=== PATIENT | female | born 1955 | race Caucasian/White ===

== ENCOUNTER 2019-12-18 19:53 | Inpatient (IN) | payer MEDICARE ==
[~2019-12-18] VITALS: Ht 154.9 cm; Wt 49.0 kg
[2019-12-18 22:50] VITALS: BP 138/76
[2019-12-18] MEDS ORDERED: FEBU80TA PO (23:20)
[2019-12-18] MEDS ORDERED: LEVO25TA7 GT (23:20)
[2019-12-18] MEDS ORDERED: PRAV20TA PO (23:20)
[2019-12-18] MEDS ORDERED: DIAZ10TA PO (23:20)
[2019-12-18 23:22] VITALS: BP 138/76
[2019-12-18] MEDS ORDERED: CARI350T PO (23:22)
[2019-12-18] MEDS ORDERED: HYDR-4384 PO (23:23)
[2019-12-18] MEDS ORDERED: CALC667T8 PO (23:25)
[2019-12-18] MEDS ORDERED: HYDR-4354 PO (23:25)
[2019-12-18] MEDS ORDERED: GABA100C PO (23:30)
[2019-12-18] MEDS ORDERED: ONDA4TAB5 PO ×2 (23:30)
[2019-12-18] MEDS ORDERED: AMLO5TAB9 PO (23:30)
[2019-12-18] MEDS ORDERED: CARV12.5 PO (23:30)
[2019-12-18] MEDS ORDERED: LOSA25TA27 PO (23:30)
[2019-12-18] MEDS ORDERED: CHOL200010 PO (23:30)
[2019-12-19] VITALS: BP 137/83
[2019-12-19] MEDS ORDERED: CARISOPRODOL 350 MG TABLET PO PRN
[2019-12-19] MEDS ORDERED: DIAZEPAM 10 MG TABLET PO SCH
[2019-12-19] MEDS ORDERED: ONDANSETRON HCL/PF 4 MG/2 ML VIAL IVP PRN
[2019-12-19] MEDS ORDERED: ACETAMINOPHEN 325 MG TABLET PO PRN
[2019-12-19] MEDS ORDERED: CARVEDILOL 12.5 MG TABLET PO ONE (01:30)
[2019-12-19] MEDS ORDERED: LOSARTAN POTASSIUM 25 MG TABLET PO ONE (01:30)
[2019-12-19] MEDS ORDERED: SENNOSIDES 8.6 MG TABLET PO PRN (02:00)
[2019-12-19] MEDS ORDERED: DIAZEPAM 5 MG TABLET ONE (02:36)
[2019-12-19] MEDS ORDERED: DIAZ5TAB4 PO (02:51)
[2019-12-19 04:00] VITALS: BP 140/73
--- NOTE | 2019-12-19 06:29 | NUR ---
FISH PROCESSOR CLOSING NOTES: PATIENT RESTING IN BED, A/O X4. NO S/S OF DISTRESS NOTED. NO COMPLAIN OF PAIN. CALL LIGHT WITHOIN REACH. BED IN LOWEST AND LOCKED POSITION. NO BLEEDING NOTED. DRESSING ON THE LEFT ARM FISTULA IS CLEAN, DRY AND INTACT. PATIENT WAS SEEN BY DR BARKER LAST NIGHT. PATIENT ABLE TO AMBULATE TO THE BATHROOM WITH MINIMAL ASSIST.
[2019-12-19 06:52] LABS: ALANINE AMINOTRANSFERASE < 6 U/L (12-78); ALBUMIN 2.6 g/dL (3.4-5.0); ALKALINE PHOSPHATASE 53 U/L (46-116); ASPARTATE AMINOTRANSFERASE 8 U/L (15-37); BILIRUBIN,TOTAL 0.5 mg/dL (0.2-1.0); CALCIUM, SERUM 8.1 mg/dL (8.5-10.1); CARBON DIOXIDE 27 mmol/L (21-32); CHLORIDE 98 mmol/L (98-107); CREATININE 7.3 mg/dL (0.6-1.3); GLUCOSE 84 mg/dL (74-106); MAGNESIUM 2.2 mg/dL (1.8-2.4); PHOSPHORUS 4.9 mg/dL (2.5-4.9); POTASSIUM 5.2 mmol/L (3.5-5.1); SODIUM SERUM 135 mmol/L (136-145); TOTAL PROTEIN, SERUM 6.2 g/dL (6.4-8.2); UREA NITROGEN, BLOOD 44 mg/dL (7-18)
[2019-12-19 06:59] LABS: CHOLESTEROL 102 mg/dL (<200); HDL CHOLESTEROL 33 mg/dL (40-60); IRON, SERUM 41 ug/dl (50-175); LDL 54 mg/dL (0-99); TOTAL IRON BINDING CAPACITY 107 ug/dl (250-450); TRIGLYCERIDES 130 mg/dL (30-150)
[2019-12-19 07:03] LABS: BASOPHILS % (AUTO) 0.9 % (0.0-2.0); EOSINOPHILS % (AUTO) 4.3 % (0.0-6.0); HEMATOCRIT 26 % (33-45); HEMOGLOBIN 7.2 g/dL (11.5-14.8); LYMPHOCYTES # (AUTO) 2.7 /CMM (0.8-4.8); LYMPHOCYTES % (AUTO) 49.4 % (20.0-44.0); MEAN CORPUSCULAR HGB CONC 28 g/dl (31.0-36.0); MEAN CORPUSCULAR VOLUME 61 fL (82-100); MONOCYTES # (AUTO) 0.3 /CMM (0.1-1.30); MONOCYTES % (AUTO) 6.4 % (2.0-12.0); NEUTROPHILS # (AUTO) 2.1 /CMM (1.8-8.9); PLATELET COUNT (AUTO) 76 /CMM (150-450); WHITE BLOOD COUNT (AUTO) 5.5 K/uL (4.3-11.0)
--- NOTE | 2019-12-19 07:30 | NUR ---
RN MS NOTES PT IN BED, AWAKE, ALERT AND ORIENTED, NO COMPLAINT OF PAIN OR ANY DISCOMFORT, BREATHING PATTERN NORMAL, CALL LIGHT WITHIN REACH, KEPT WARM AND COMFORTABLE IN BED.
[2019-12-19] MEDS: PANTOPRAZOLE 40 MG TABLET.DR PO SCH (07:47)
[2019-12-19] MEDS: LEVOTHYROXINE SODIUM 25 MCG TABLET GT SCH (07:47)
[2019-12-19] MEDS: CALCIUM ACETATE 667 MG TABLET PO SCH ×3 (07:50→17:14)
[2019-12-19 08:00] VITALS: BP 133/77
[2019-12-19] MEDS: AMLODIPINE BESYLATE 5 MG TABLET PO SCH ×3 (09:00→21:00)
[2019-12-19] MEDS ORDERED: LOSARTAN POTASSIUM 25 MG TABLET PO SCH (09:00)
[2019-12-19] MEDS: CHOLECALCIFEROL 1,000 UNIT TABLET (VIT D3) PO SCH (10:05)
[2019-12-19] MEDS: CARVEDILOL 12.5 MG TABLET PO SCH ×2 (10:06→22:23)
[2019-12-19] MEDS: GABAPENTIN 100 MG CAPSULE PO SCH ×2 (10:06→22:24)
[2019-12-19] MEDS: HYDROCODONE/APAP 10/325MG TABLET PO PRN (10:17)
[2019-12-19 11:13] LABS: EOSINOPHILS % (MANUAL) 7 % (0-4); LYMPHOCYTES % (MANUAL) 26 % (16-48); MONOCYTES % (MANUAL) 7 % (0-11.0); NEUTROPHILS % (MANUAL) 60 (42-76)
[2019-12-19] MEDS ORDERED: EPOETIN ALFA (10,000 UNIT) 10,000 UNIT/ML VIAL SQ SCH (13:00)
[2019-12-19] MEDS: JADENU PO SCH (14:29)
[2019-12-19] MEDS: JADENU 180 MG PO SCH (14:44)
[2019-12-19 16:00] VITALS: BP 120/68
[2019-12-19] MEDS ORDERED: SODIUM POLYSTYRENE SULFONATE 15 G/60 ML BOTTLE PO ONE (17:30)
--- NOTE | 2019-12-19 19:30 | NUR ---
MS RN NOTES RECEIVED A/O X4,SITTING ON EDGE OF BED,TAKING PO KAYEXALATE FOR K LEVEL OF 5.2.HD CATH LEFT UPPER ARM DRESSING INTACT AND DRY.NO BLEEDING NOTED.WITH SALINE LOCK RIGHT WRIST INTACT AND PATENT,AMBULATE WITH STEADY GAIT.INSTRUCTED NPO POST MIDNIGHT FOR FOR HD CATH PLACEMENT TOMORROW MORNING.CALL LIGHT IN REACH,NEEDS ANTICIPATED.
--- NOTE | 2019-12-19 19:38 | NUR ---
MS RN CLOSING SHIFT NOTES PATIENT RESTING IN BED COMFORTABLY ON RA, A/O X 4, IV TO RT FA #20 ; RT WRIST #20 SL. CONTINET, AMBULATORY, BRP. DRESSING TO LT ARM FISTULA. CONSENT SIGNED TO HAVE FISTULA REPAIR. PT NPO. BED AT LOWEST POSITION, LOCKED WITH SIDE RAILS UP X2 ALL SAFETY MEASURES IN PLACE WILL ENDORSE TO DIRECTOR OF VIDEO ANALYTICS.
[2019-12-19 20:00] VITALS: BP 127/76
--- NOTE | 2019-12-19 20:27 | NUR ---
MS RN NOTES FEELING NAUSEATED FROM KAYEXALATE,MEDICATED WITH ZOFRAN 4MG IV ORDERED.
[2019-12-19] MEDS ORDERED: ULORIC 80 MG PO SCH (21:00)
[2019-12-19] MEDS: POLYETHYLENE GLYCOL 3350 17 GM POWD.PACK PO SCH (22:00)
[2019-12-19] MEDS: DIAZEPAM 5 MG TABLET PO SCH (22:25)
[2019-12-20] VITALS (7 sets, daily range): BP systolic 112–140; BP diastolic 42–76
--- NOTE | 2019-12-20 06:41 | NUR ---
MS RN NOTES FAIRLY RESTED AT NIGHT,KAYEXALATE EFFECTIVE,HAD 7-8 WATERY BOWEL MOVEMENT,NAUSEA IMPROVED.KEPT NPO FOR HD CATH PLACEMENT BY DR TRUONG AT 0900 TODAY.MEDICATIONS ADMINISTERED.SYNTHROID HELD,IN NO ACUTE DISTRESS.CALL LIGHT IN REACH,NEEDS ATTENDED.
[2019-12-20 06:59] LABS: BASOPHILS # (AUTO) 0.1 /CMM (0.0-0.2); BASOPHILS % (AUTO) 1.1 % (0.0-2.0); EOSINOPHILS % (AUTO) 3.8 % (0.0-6.0); HEMATOCRIT 24 % (33-45); LYMPHOCYTES # (AUTO) 2.6 /CMM (0.8-4.8); LYMPHOCYTES % (AUTO) 52.7 % (20.0-44.0); MEAN CORPUSCULAR HGB CONC 29 g/dl (31.0-36.0); MEAN CORPUSCULAR VOLUME 62 fL (82-100); MONOCYTES # (AUTO) 0.3 /CMM (0.1-1.30); MONOCYTES % (AUTO) 5.7 % (2.0-12.0); NEUTROPHILS # (AUTO) 1.8 /CMM (1.8-8.9); NEUTROPHILS % (AUTO) 36.7 % (43.0-81.0); PLATELET COUNT (AUTO) 83 /CMM (150-450); RED BLOOD CELL COUNT(AUTO) 3.78 MIL/uL (4.0-5.2)
[2019-12-20] MEDS: LEVOTHYROXINE SODIUM 25 MCG TABLET GT SCH (07:00)
[2019-12-20 07:20] LABS: CALCIUM, SERUM 8.4 mg/dL (8.5-10.1); POTASSIUM 5.3 mmol/L (3.5-5.1)
[2019-12-20 07:24] LABS: HEMOGLOBIN 6.9 g/dL (11.5-14.8)
[2019-12-20] MEDS: PANTOPRAZOLE 40 MG TABLET.DR PO SCH (07:30)
[2019-12-20 07:33] LABS: CREATININE 9.6 mg/dL (0.6-1.3)
--- NOTE | 2019-12-20 07:42 | NUR ---
MS RN OPENING NOTES PATIENT RESTING COMFORTABLY IN BED, A/O X4. NPO; PROCEDURE FOR LT AV FISTULA REPAIR TODAY. PATIENT ON RA, NO SOB, NO S/S OF RESPIRATORY DISTRESS NOTED. NO COMPLAIN OF PAIN. BED IN LOWEST AND LOCKED POSITION WITH CALL LIGHT WITH IN REACH. NO BLEEDING NOTED. DRESSING ON THE LEFT ARM FISTULA IS CLEAN, DRY AND INTACT.ALL SAFETY MEASURES IN PLACE. WILL CONTINUE TO MONITOR PT THROUGH OUT SHIFT
[2019-12-20] MEDS: CALCIUM ACETATE 667 MG TABLET PO SCH ×4 (08:00→23:46)
--- NOTE | 2019-12-20 08:28 | NUR ---
was notified re; hgb 6.9 hct 24 creatine 9.6 bun 54 at this time also surgery was canceled due to low hgb waiting for returninig call back
[2019-12-20 08:31] LABS: EOSINOPHILS % (MANUAL) 1 % (0-4); LYMPHOCYTES % (MANUAL) 56 % (16-48); MONOCYTES % (MANUAL) 5 % (0-11.0); NEUTROPHILS % (MANUAL) 38 (42-76)
[2019-12-20] MEDS ORDERED: ANESTHESIA TRAY IN PYXIS 1 EA TRAY MC ONE (08:34)
[2019-12-20] MEDS ORDERED: HEPARIN SODIUM, PORCINE 1,000 UNIT/ML VIAL ONE (08:36)
[2019-12-20] MEDS ORDERED: LIDOCAINE 1% INJ 50 ML MDV IJ ONE (08:36)
--- NOTE | 2019-12-20 08:45 | NUR ---
RN MS NOTES PT PICKED UP BY O.R. STAFF VIA BED FOR SURGERY, NO COMPLAINT OF PAIN, RESPIRATIONS NORMAL, MD AND O.R. STAFF INFORMED OF HGB LEVEL OF 6.9, NO BLEEDING NOTED, MD ORDERED 1 UNIT PRBC, DR. OCAMPO DISCUSSED PLAN OF CARE WITH PT, VERBALIZED UNDERSTANDING, PT PICKED UP FOR O.R. IN STABLE CONDITION.
[2019-12-20] MEDS: CHOLECALCIFEROL 1,000 UNIT TABLET (VIT D3) PO SCH (09:00)
[2019-12-20] MEDS ORDERED: SODIUM POLYSTYRENE SULFONATE 15 G/60 ML BOTTLE PO ONE ×2 (09:00→12:00)
[2019-12-20] MEDS: JADENU 180 MG PO SCH (09:00)
[2019-12-20] MEDS: AMLODIPINE BESYLATE 5 MG TABLET PO SCH ×3 (09:00→22:03)
[2019-12-20] MEDS: GABAPENTIN 100 MG CAPSULE PO SCH ×2 (09:00→21:27)
[2019-12-20] MEDS: JADENU PO SCH (09:00)
[2019-12-20] MEDS ORDERED: IOHEXOL 240MG/ML 50 ML IV ONE (09:35)
[2019-12-20] MEDS: CARVEDILOL 12.5 MG TABLET PO SCH ×2 (11:49→21:27)
[2019-12-20] MEDS: HYDROCODONE/APAP 10/325MG TABLET PO PRN ×2 (12:33→20:50)
[2019-12-20 13:46] LABS: IRON, SERUM 41 ug/dl (50-175); TOTAL IRON BINDING CAPACITY 133 ug/dl (250-450)
[2019-12-20] MEDS: EPOETIN ALFA (10,000 UNIT) 10,000 UNIT/ML VIAL SQ SCH (15:48)
[2019-12-20] MEDS: ANCEF 1 GM/50 ML D5W IV SCH ×2 (17:45)
[2019-12-20] MEDS: HYDROCODONE/APAP 5/325MG TABLET PO PRN (17:45)
--- NOTE | 2019-12-20 18:54 | NUR ---
MS RN CLOSING NOTES PATIENT SITTING COMFORTABLY ON SIDE OF BED TALKING TO FAMILY ON THE PHONE, A/O X4. ON RA, NO ACUTE RESPIRATORY DISTRESS NOTED, NO C/O SOB. IV TO RT FA AND RT WRIST #20 PATENT AND INTACT WITH NO SIGNS OF INFILTRATION NOTED, NO REDNESS OR SWELLING NOTED. PT HAD PERMACATH HD PLACEMENT TO LT UPPER CHEST AREA DONE TODAY. PT HAD HD TODAY WITH 1500 OUTPUT AND 1 UNIT OF PRBC ADMINISTERED WITH HD. PT C/O PAIN, NORCO ADMINISTERED. ANCEF ADMINISTERED. BED AT LOWEST POSITION AND LOCKED WITH SIDE RAILS UP X2 AND CALL LIGHT WITH IN REACH. WILL ENDORSE TO ONCOMING SHIFT.
--- NOTE | 2019-12-20 19:00 | NUR ---
RN CLOSING NOTES Received patient A/O x4, awake, resting on bed, on RA. No complaints made at this time. L arm AV fistula dressing clean, dry and intact, no signs of bleeding noted. Kept on bed clean, dry and comfortable. Call light within easy reach. Will continue to monitor. Addendum: 12/21/19 at 0650 by MAGDIEL BALDERRAMA RN rn opening notes
[2019-12-20] MEDS: DIAZEPAM 5 MG TABLET PO SCH (21:27)
[2019-12-20] MEDS: POLYETHYLENE GLYCOL 3350 17 GM POWD.PACK PO SCH ×2 (21:27→22:00)
[2019-12-20] MEDS: LOSARTAN POTASSIUM 25 MG TABLET PO SCH (22:51)
[2019-12-21] MEDS: ANCEF 1 GM/50 ML D5W IV SCH ×4 (01:54→10:57)
[2019-12-21] MEDS: HYDROCODONE/APAP 5/325MG TABLET PO PRN ×3 (01:59→22:25)
[2019-12-21] MEDS: HYDROCODONE/APAP 10/325MG TABLET PO PRN (04:55)
--- NOTE | 2019-12-21 06:48 | NUR ---
RN CLOSING NOTES Pt awake, ongoing dialysis at bedside. Medicated for pain, noted effective. All due meds given as ordered. No new complaints noted. All nursing needs attended, due meds given as ordered. Kept on bed clean, dry and comfortable. Call light within easy reach. Endorsed.
[2019-12-21 06:50] LABS: BASOPHILS # (AUTO) 0.1 /CMM (0.0-0.2); BASOPHILS % (AUTO) 1.2 % (0.0-2.0); EOSINOPHILS % (AUTO) 2.2 % (0.0-6.0); HEMATOCRIT 25 % (33-45); HEMOGLOBIN 7.5 g/dL (11.5-14.8); LYMPHOCYTES # (AUTO) 2.2 /CMM (0.8-4.8); LYMPHOCYTES % (AUTO) 46.7 % (20.0-44.0); MEAN CORPUSCULAR HGB CONC 31 g/dl (31.0-36.0); MEAN CORPUSCULAR VOLUME 68 fL (82-100); MONOCYTES # (AUTO) 0.2 /CMM (0.1-1.30); MONOCYTES % (AUTO) 5.1 % (2.0-12.0); NEUTROPHILS # (AUTO) 2.2 /CMM (1.8-8.9); NEUTROPHILS % (AUTO) 44.8 % (43.0-81.0); PLATELET COUNT (AUTO) 79 /CMM (150-450); RED BLOOD CELL COUNT(AUTO) 3.61 MIL/uL (4.0-5.2); WHITE BLOOD COUNT (AUTO) 4.8 K/uL (4.3-11.0)
[2019-12-21 07:30] LABS: C-REACTIVE PROTEIN 4.1 mg/dL (0.0-0.9)
[2019-12-21 07:31] LABS: ALBUMIN 2.5 g/dL (3.4-5.0); ALKALINE PHOSPHATASE 50 U/L (46-116); ASPARTATE AMINOTRANSFERASE 6 U/L (15-37); BILIRUBIN,TOTAL 0.3 mg/dL (0.2-1.0); CARBON DIOXIDE 30 mmol/L (21-32); CHLORIDE 109 mmol/L (98-107); GLUCOSE 92 mg/dL (74-106); PHOSPHORUS 2.6 mg/dL (2.5-4.9); POTASSIUM 3.7 mmol/L (3.5-5.1); SODIUM SERUM 146 mmol/L (136-145); TOTAL PROTEIN, SERUM 6.1 g/dL (6.4-8.2); UREA NITROGEN, BLOOD 19 mg/dL (7-18)
[2019-12-21 07:45] LABS: ALANINE AMINOTRANSFERASE < 6 U/L (12-78); CREATININE 4.2 mg/dL (0.6-1.3)
--- NOTE | 2019-12-21 07:45 | NUR ---
RN NOTE THE PATIENT IS RECEIVED IN BED. THE PATIENT IS ALERT AND ORIENTED X4. DENIES PAIN. RESPIRATION REGULAR AND UNLABORED. PATIENT IS IN ROOM AIR AND DENIES SOB. PATIENT IN NO APPARENT DISTRESS. RFA G 20 AND RIGHT WRIST G 20 BOTH PATENT AND SALINE LOCKED. BED LOW AND LOCKED. SIDE RAILS UP X2. CALL LIGHT WITHIN REACH. WILL ENDORSE TO PATIENT CARE REPRESENTATIVE.
[2019-12-21 08:00] VITALS: BP 117/84
--- NOTE | 2019-12-21 09:35 | NUR ---
RN NOTE PER SERVICENOW ADMINISTRATOR DEVELOPER OCAMPO DIET CHANGED TO RENAL STANDARD. NOTED AND CARRIED OUT.
[2019-12-21] MEDS: PANTOPRAZOLE 40 MG TABLET.DR PO SCH (09:45)
[2019-12-21] MEDS: GABAPENTIN 100 MG CAPSULE PO SCH ×2 (09:45→20:42)
[2019-12-21] MEDS: LEVOTHYROXINE SODIUM 25 MCG TABLET GT SCH (09:45)
[2019-12-21] MEDS: LOSARTAN POTASSIUM 25 MG TABLET PO SCH ×2 (09:46→17:00)
[2019-12-21] MEDS: CARVEDILOL 12.5 MG TABLET PO SCH ×2 (09:46→20:42)
[2019-12-21] MEDS: CHOLECALCIFEROL 1,000 UNIT TABLET (VIT D3) PO SCH (09:46)
[2019-12-21] MEDS: JADENU PO SCH (09:47)
[2019-12-21] MEDS: JADENU 180 MG PO SCH (09:47)
--- NOTE | 2019-12-21 10:20 | NUR ---
RN NOTE PATIENT HD DIALYSIS TODAY WITH 500 ML OUTPUT.
[2019-12-21 11:24] LABS: EOSINOPHILS % (MANUAL) 5 % (0-4); LYMPHOCYTES % (MANUAL) 17 % (16-48); MONOCYTES % (MANUAL) 11 % (0-11.0); NEUTROPHILS % (MANUAL) 67 (42-76)
[2019-12-21] MEDS: CALCIUM ACETATE 667 MG TABLET PO SCH ×2 (12:10→17:13)
[2019-12-21] MEDS: EPOETIN ALFA (10,000 UNIT) 10,000 UNIT/ML VIAL SQ SCH (15:06)
[2019-12-21 16:00] VITALS: BP 116/84
[2019-12-21] MEDS: oxyCODONE/APAP (5/325 MG) 1 UDTAB TABLET PO PRN (17:13)
--- NOTE | 2019-12-21 18:26 | NUR ---
RN NOTE THE PATIENT IS ALERT AND ORIENTED X4. IN ROOM AIR AND SATURATION IS AT 96%. DENIES SOB. RESPIRATION REGULAR AND UNLABORED. DENIES PAIN. THE PATIENT IS IN NO APPARENT DISTRESS. RFA G 20 PATENT AND SALINE LOCKED. RIGHT WRIST G 20 PATENT AND SALINE LOCKED. LEFT UUPER CHESTWALL HD CATH PRESENT. LAC FISTULA PRESENT. BED LOW AND LOCKED. SIDE RAILS UP X2. CALL LIGHT WITHIN REACH. WILL ENDORSE TO SHOE SEWING MACHINE OPERATOR AND TENDER.
--- NOTE | 2019-12-21 19:30 | NUR ---
MS/RN OPENING NOTES RECEIVED PATIENT IN BED RESTING. PATIENT IS ALERT AND ORIENTED X 4. PATIENT IS STABLE ON RA. NO SIGNS OF SOB OR RESPIRATORY DISTRESS NOTED. BREATHING IS EVEN AND UNLABORED. PATIENT HAS IV ACCESS ON RIGHT FA #20, RIGHT WRIST #20SL. PATIENTS LAV FISTULA PRESENT, AND LUCW PERMA CATH INPLACE NO SIGNS OF ACTIVE BLEEDING. PATIENT STATES PAIN AT THIS TIME AREA LUCW AREA. SAFETY PRECAUTIONS IN PLACE WITH BED LOCKED, BED IN THE LOWEST POSITION, BILATERAL SIDE RAILS UP, BED ALARM ON AND CALL LIGHT WITHIN EASY REACH OF THE PATIENT. WILL CONTINUE TO MONITOR THROUGH OUT SHIFT.
[2019-12-21 20:00] VITALS: BP 130/79
[2019-12-21] MEDS: POLYETHYLENE GLYCOL 3350 17 GM POWD.PACK PO SCH (20:41)
[2019-12-21] MEDS: DIAZEPAM 5 MG TABLET PO SCH (20:42)
[2019-12-22] MEDS: oxyCODONE/APAP (5/325 MG) 1 UDTAB TABLET PO PRN ×3 (03:43→17:30)
--- NOTE | 2019-12-22 03:45 | NUR ---
MS/RN NOTES PATIENT COMPLAINING OF PAIN AT LEFT PERMA CATH SITE 12/04. GIVEN PERCOCET 5/325 TAB PO. V/S ARE STABLE. WILL CONTINUE TO MONITOR.
[2019-12-22] MEDS: PANTOPRAZOLE 40 MG TABLET.DR PO SCH (06:00)
[2019-12-22] MEDS: LEVOTHYROXINE SODIUM 25 MCG TABLET GT SCH (06:00)
--- NOTE | 2019-12-22 06:30 | NUR ---
MS/RN CLOSING NOTES RECEIVED PATIENT IN BED RESTING. PATIENT IS ALERT AND ORIENTED X 4. PATIENT IS STABLE ON RA. NO SIGNS OF SOB OR RESPIRATORY DISTRESS NOTED. BREATHING IS EVEN AND UNLABORED. PATIENT HAS IV ACCESS ON RIGHT FA #20, RIGHT WRIST #20SL. PATIENTS LAV FISTULA PRESENT, AND LUCW PERMA CATH IN PLACE NO SIGNS OF ACTIVE BLEEDING. ALL PATIENTS NEEDS HAVE BEEN MET DURING SHIFT. SAFETY PRECAUTIONS IN PLACE WITH BED LOCKED AND IN THE LOWEST POSITION, SIDE RAILS UP X 2, BED ALARM ON AND CALL LIGHT WITHIN EASY REACH OF THE PATIENT. WILL ENDORSE CARE TO DAY SHIFT.
[2019-12-22 06:49] LABS: CALCIUM, SERUM 8.4 mg/dL (8.5-10.1); CREATININE 6.1 mg/dL (0.6-1.3); POTASSIUM 4.2 mmol/L (3.5-5.1)
[2019-12-22 06:54] LABS: BASOPHILS % (AUTO) 0.8 % (0.0-2.0); EOSINOPHILS % (AUTO) 3.7 % (0.0-6.0); HEMATOCRIT 25 % (33-45); HEMOGLOBIN 7.4 g/dL (11.5-14.8); LYMPHOCYTES # (AUTO) 2.6 /CMM (0.8-4.8); LYMPHOCYTES % (AUTO) 44.3 % (20.0-44.0); MEAN CORPUSCULAR HGB CONC 30 g/dl (31.0-36.0); MEAN CORPUSCULAR VOLUME 69 fL (82-100); MONOCYTES # (AUTO) 0.4 /CMM (0.1-1.30); MONOCYTES % (AUTO) 6.7 % (2.0-12.0); NEUTROPHILS # (AUTO) 2.6 /CMM (1.8-8.9); NEUTROPHILS % (AUTO) 44.5 % (43.0-81.0); PLATELET COUNT (AUTO) 76 /CMM (150-450); WHITE BLOOD COUNT (AUTO) 5.8 K/uL (4.3-11.0)
--- NOTE | 2019-12-22 07:03 | NUR ---
MS RN OPENING NOTES RECEIVED PT AWAKE IN BED AT THIS TIME. AOX4.PT ABLE TO MAKE NEEDS KNOWN. NO SOB NOTED, NO S/S OF ANY ACUTE DISTRESS NOTED. NO C/O PAIN AT THIS TIME. RESPIRATIONS ARE EVEN AND UNLABORED WITH EQUAL RISE AND FALL IN CHEST.PT SATURATING WELL ON RA. IV ACCESS NOTED IN RFA G#20 AND RIGHT WRIST G#20, BOTH INTACT, PATENT AND FLUSHING WELL. PT NOTED WITH LEFT AV FISTULA AND LEFT UPPER CW PERMA-CATH FOR HD. ASPIRATION AND SAFETY PRECAUTION IN PLACE AND MAINTAINED AT ALL TIMES. BED IN LOWEST LOCKED POSITION, HOB ELEVATED, SIDE RAILS UP X 2, CALL LIGHT WITHIN REACH. WILL CONTINUE TO MONITOR
[2019-12-22] MEDS: CALCIUM ACETATE 667 MG TABLET PO SCH ×3 (07:37→17:30)
[2019-12-22 08:00] VITALS: BP 136/75
[2019-12-22 08:17] LABS: BASOPHILS % (MANUAL) 0 % (0.0-2.0); EOSINOPHILS % (MANUAL) 3 % (0-4); LYMPHOCYTES % (MANUAL) 34 % (16-48); MONOCYTES % (MANUAL) 3 % (0-11.0); NEUTROPHILS % (MANUAL) 60 (42-76)
[2019-12-22 09:08] LABS: IMMUNOGLOBULIN A, SERUM 329 mg/dL (87-352); IMMUNOGLOBULIN G, SERUM 1291 mg/dL (586-1602); IMMUNOGLOBULIN M, SERUM 59 mg/dL (26-217)
[2019-12-22] MEDS: CARVEDILOL 12.5 MG TABLET PO SCH (09:08)
[2019-12-22] MEDS: LOSARTAN POTASSIUM 25 MG TABLET PO SCH ×2 (09:09→16:56)
[2019-12-22] MEDS: GABAPENTIN 100 MG CAPSULE PO SCH (09:09)
[2019-12-22] MEDS: JADENU PO SCH (09:09)
[2019-12-22] MEDS: JADENU 180 MG PO SCH (09:09)
[2019-12-22] MEDS: CHOLECALCIFEROL 1,000 UNIT TABLET (VIT D3) PO SCH (09:09)
--- NOTE | 2019-12-22 09:15 | NUR ---
PT C/O ACHING LEFT UPPER CHEST WALL PERMA CATH SITE PAIN OF 9/10 AT THIS TIME, VS WNL. PER PT REQUEST, PERCOSET 5/325MG PO Q4HR PRN ADMINISTERED PER ORDER AT THIS TIME. WILL CONTINUE TO MONITOR
[2019-12-22] MEDS ORDERED: INFLUENZA VACCINE 2020-21 0.5 ML DISP.SYRIN IM ONE (11:00)
--- NOTE | 2019-12-22 11:34 | NUR ---
ADMINISTERED FLU VACCINE IN RIGHT ARM AT THIS TIME. WILL CONTINUE TO MONITOR
[2019-12-22 13:24] LABS: *SPE A/G RATIO 1.1 (0.7-1.7); *SPE ALPHA-1-GLOBULIN 0.3 g/dL (0.0-0.4); *SPE ALPHA-2-GLOBULIN 0.5 g/dL (0.4-1.0); *SPE BETA GLOBULIN 0.7 g/dL (0.7-1.3); *SPE GLOBULIN, TOTAL 2.8 g/dL (2.2-3.9); *SPE M-SPIKE Not Observed g/dL (Not Observed); *SPEGAMMA GLOBULIN 1.4 g/dL (0.4-1.8)
[2019-12-22] MEDS ORDERED: OXYC1TAB8 PO (13:35)
[2019-12-22] MEDS: EPOETIN ALFA (10,000 UNIT) 10,000 UNIT/ML VIAL SQ SCH (15:18)
[2019-12-22 16:00] VITALS: BP 112/70
[2019-12-22 16:56] VITALS: BP 112/70
--- NOTE | 2019-12-22 19:00 | NUR ---
MS HOBBER NOTES PT DISCHARGE TO HOME AT THIS TIME. PT IN MEDICALLY STABLE CONDITION. ALL CARE NEEDS, TREAT AND MEDICATIONS ADMINISTERED ANTICIPATED PER ORDER. PT KEPT CLEAN AND DRY. ALL DISCHARGE INSTRUCTIONS PROVIDED FOR AND PT VERBALIZED UNDERSTANDING. MEDICATIONS PICKED UP FROM PHARMACY AND RETURNED TO PT. BELONGINGS ACCOUNTED FOR, SIGNED BY PT AND FILED IN CHART. IV ACCESSES REMOVED, PRESSURE APPLIED, SECURE WITH GAUZE AND TAPE. NO SIGN OF BLEEDING OR INFILTRATION NOTED. PT TRANSPORTED BY WHEEL CHAIR TO [facility] BY KATHERINE MEDEIROS. PT PICKED UP IN PRIVATE CAR BY HESHAM MCCALLUM.
[2019-12-23 12:35] LABS: *HGBFRC HEMOGLOBIN A2 1.6 % (1.8-3.2)
[2019-12-23 18:19] LABS: *ANA ANTI-CENTROMERE B AB <0.2 AI (0.0-0.9); *ANA ANTI-DNA(DS) AB, QN <1 IU/mL (0-9); *ANA ANTI-JO-1 <0.2 AI (0.0-0.9); *ANA ANTICHROMATIN ANTIBODY <0.2 AI (0.0-0.9); *ANA RNP ANTIBODIES <0.2 AI (0.0-0.9); *ANA SJOGREN'S ANTI-SS-A <0.2 AI (0.0-0.9); *ANA SJOGREN'S ANTI-SS-B <0.2 AI (0.0-0.9); *ANAANTI-SCLERODERMA-70 AB <0.2 AI (0.0-0.9); *ANASMITH AB <0.2 AI (0.0-0.9)
== END 2019-12-22 18:55 | disposition home or self-care (01) | DRG 314 ==
LOC: TELE 21:08 → MED 12-19 08:59
PROVIDERS: ADMIT Internal Medicine; ATTEND Student in an Organized Health Care Education/Training Program
PROC: 5A1D70Z Performance of Urinary Filtration, Intermittent, Less than 6 Hours Per Day (ICD-10-PCS; 2019-12-19)
PROC: 0JH63XZ Insertion of Tunneled Vascular Access Device into Chest Subcutaneous Tissue and Fascia, Percutaneous Approach (ICD-10-PCS; principal; 2019-12-20)
PROC: 02HV33Z Insertion of Infusion Device into Superior Vena Cava, Percutaneous Approach (ICD-10-PCS; 2019-12-20)
PROC: B548ZZA Ultrasonography of Superior Vena Cava, Guidance (ICD-10-PCS; 2019-12-20)
PROC: B54PZZZ Ultrasonography of Bilateral Upper Extremity Veins (ICD-10-PCS; 2019-12-20)
PROC: 30233N1 Transfusion of Nonautologous Red Blood Cells into Peripheral Vein, Percutaneous Approach (ICD-10-PCS; 2019-12-20)
DX: T82.838A Hemorrhage due to vascular prosthetic devices, implants and grafts, initial encounter (principal); N18.6 End stage renal disease; N25.81 Secondary hyperparathyroidism of renal origin; I12.0 Hypertensive chronic kidney disease with stage 5 chronic kidney disease or end stage renal disease; D61.818 Other pancytopenia; E87.1 Hypo-osmolality and hyponatremia; D68.9 Coagulation defect, unspecified; Z94.0 Kidney transplant status; Y84.9 Medical procedure, unspecified as the cause of abnormal reaction of the patient, or of later complication, without mention of misadventure at the time of the procedure; Y92.9 Unspecified place or not applicable; E11.22 Type 2 diabetes mellitus with diabetic chronic kidney disease; Z99.2 Dependence on renal dialysis; E87.5 Hyperkalemia; D63.1 Anemia in chronic kidney disease; D56.9 Thalassemia, unspecified; E03.9 Hypothyroidism, unspecified; K21.9 Gastro-esophageal reflux disease without esophagitis; F41.9 Anxiety disorder, unspecified; G89.4 Chronic pain syndrome; E78.5 Hyperlipidemia, unspecified; G62.9 Polyneuropathy, unspecified; K59.00 Constipation, unspecified; Z79.4 Long term (current) use of insulin; M19.90 Unspecified osteoarthritis, unspecified site; M10.9 Gout, unspecified; M89.9 Disorder of bone, unspecified; Z79.891 Long term (current) use of opiate analgesic; Y84.8 Other medical procedures as the cause of abnormal reaction of the patient, or of later complication, without mention of misadventure at the time of the procedure; Y92.89 Other specified places as the place of occurrence of the external cause; D72.820 Lymphocytosis (symptomatic); T82.868A Thrombosis due to vascular prosthetic devices, implants and grafts, initial encounter; E83.9 Disorder of mineral metabolism, unspecified; D50.9 Iron deficiency anemia, unspecified
CPT/HCPCS: 36415; 71045-TC; 76700-TC; 80048-TC; 80053-TC; 80061-TC; 82728-TC; 82784; 83021; 83540-TC; 83735-TC; 84100-TC; 84155; 84165; 84443-TC; 85025-TC; 85027-TC; 85385-TC; 85610-TC; 85660; 85730-TC; 86140-TC; 86225; 86235; 86334; 86431-TC; 86706; 86803; 86850-TC; 87081-TC; 87340; 87806; 90935-TC; C1750; C1757; C1769; G0378; J0690; J0885; J1644; J2405; J3490; J7050; J7060; P9016-BL; Q2036; Q9966

== ENCOUNTER 2021-11-02 14:19 | Inpatient (IN) | payer MEDICARE ==
[~2021-11-02] VITALS: Ht 152.4 cm; Wt 41.7 kg
[~2021-11-02 14:19] MED LIST: AMLO-212 PO; CALC667T8 PO; CARI350T PO; CARV12.5 PO; CHOL200010 PO; DIAZ5TAB4 PO; FEBU80TA PO; GABA100C PO; HYDR-4354 PO; HYDR-4384 PO; LEVO25TA7 PO; LOSA25TA27 PO; ONDA4TAB5 PO; OXYC1TAB8 PO; PRAV20TA PO
--- NOTE | 2021-11-02 14:30 | NUR ---
To ER bed 5, HARLEY RA90 from Home "missed dialysis today -Been feeling weak/sob", aaox3, breathing even and non labored, connected to monitor, awaiting md orders
--- NOTE | 2021-11-02 14:40 | NUR ---
SALINE LOCK ESTABLISHED, BLOOD DRAWN AND SENT TO LAB
--- NOTE | 2021-11-02 14:55 | NUR ---
COVID SWAB DONE AND SENT TO LAB
[2021-11-02 14:56] LABS: BASOPHILS # (AUTO) 0.2 K/uL (0.0-0.2); BASOPHILS % (AUTO) 4.9 % (0.0-2.0); EOSINOPHILS % (AUTO) 3.3 % (0.0-6.0); HEMATOCRIT 35 % (33-45); HEMOGLOBIN 9.4 g/dL (11.5-14.8); LYMPHOCYTES # (AUTO) 1.3 K/uL (0.8-4.8); LYMPHOCYTES % (AUTO) 27.1 % (20.0-44.0); MEAN CORPUSCULAR HGB CONC 27 g/dl (31.0-36.0); MEAN CORPUSCULAR VOLUME 70 fL (82-100); MONOCYTES # (AUTO) 0.3 K/uL (0.1-1.30); MONOCYTES % (AUTO) 6.7 % (2.0-12.0); NEUTROPHILS # (AUTO) 2.9 K/uL (1.8-8.9); RED BLOOD CELL COUNT(AUTO) 5.02 MIL/uL (4.0-5.2)
[2021-11-02 15:30] LABS: CALCIUM, SERUM 7.8 mg/dL (8.5-10.1); CARBON DIOXIDE 27 mmol/L (21-32); CHLORIDE 96 mmol/L (98-107); CREATININE 6.5 mg/dL (0.6-1.3); GLUCOSE 98 mg/dL (74-106); POTASSIUM 5.5 mmol/L (3.5-5.1); SODIUM SERUM 133 mmol/L (136-145); UREA NITROGEN, BLOOD 50 mg/dL (7-18)
[2021-11-02 15:46] LABS: ALANINE AMINOTRANSFERASE 6 U/L (12-78); ALBUMIN 3.4 g/dL (3.4-5.0); ALKALINE PHOSPHATASE 139 U/L (46-116); ASPARTATE AMINOTRANSFERASE 18 U/L (15-37); BILIRUBIN,DIRECT 0.2 mg/dL (0.0-0.2); BILIRUBIN,TOTAL 0.6 mg/dL (0.2-1.0); TOTAL PROTEIN, SERUM 7.5 g/dL (6.4-8.2)
[2021-11-02 16:01] LABS: PLATELET COUNT (AUTO) 46 K/uL (150-450)
[2021-11-02 16:11] LABS: BAND % (MANUAL) 2 % (0.0-5.0); EOSINOPHILS % (MANUAL) 2 % (0-4); LYMPHOCYTES % (MANUAL) 15 % (16-48); MONOCYTES % (MANUAL) 6 % (0-11.0); NEUTROPHILS % (MANUAL) 75 (42-76)
--- NOTE | 2021-11-02 17:33 | NUR ---
JOSH [phone] [facility].
--- NOTE | 2021-11-02 17:45 | NUR ---
BED 328-1
--- NOTE | 2021-11-02 19:30 | NUR ---
RECEIVED REPORT FROM JUS ORLANDO . PT IS A HEMODIALYSIS PATIENT. WITH LEFT AV FISTULA. PATIENT IS AAOX4. WEAK AND WITH SOB. PATIENT IS ON O2 CANNULA AT 5LPM SATS 99%. PATIENT HAS PERIPHERAL LINE ON RIGHT FA G20. PATIENT WILL BE ADMITTED TO RN 328 AFTER REPORT IS GIVEN. ATTACHED TO MONITOR. VITALS CHECKED AND MONITOR. POSITIONED COMFORTABLY IN BED.
--- NOTE | 2021-11-02 20:19 | NUR ---
JAYRO INSULATION BOARD CALENDER OPERATOR CALLED TO GIVE AUTHORIZATION TO STAY. AUTH# [id number]
--- NOTE | 2021-11-02 21:00 | NUR ---
REPORT GIVEN TO RN JULY. PATIENT WILL BE MOVING TO RM [id number]
--- NOTE | 2021-11-02 21:18 | NUR ---
TRANSFERRED PATIENT TO 328-1.
[2021-11-02] MEDS ORDERED: ONDANSETRON HCL/PF 4 MG/2 ML VIAL IVP PRN (21:30)
[2021-11-02] MEDS ORDERED: ACETAMINOPHEN 325 MG TABLET PO PRN (21:30)
--- NOTE | 2021-11-02 21:30 | NUR ---
FINAL CIGAR AND BOX EXAMINERTOOL AND MACHINE MAINTAINER NOTES RECEIVED PT FROM ED VIA GURNEY AT 2107 UNDER THE CARE OF DR. MCGRAW WITH DX OF HYPOXIC RESPIRATORY FAILURE. PT IS A/O X4 W/ C/C WEAKNESS AND SOB. SHE MISSED HER HD TODAY. ORIENTED PT TO ROOM AND UNIT. INITIAL V/S TAKEN. UPON ADMISSION, PT HAS O2 AT 5 LPM VIA NASAL CANULA, LOWERED TO 3 LPM D/T HX OF COPD. NOTED AND NOTIFIED RT. C/O GENERALIZED CHRONIC PAIN 10/04. HAS RIGHT FOREARM IV ACCESS #20G AND SALINE LOCKED. NO S/S OF INFILTRATION NOTED. HAS LEFT UPPER ARM AV FISTULA, THRILLS AND BRUITS PRESENT. PT IS ANURIC. SKIN INTACT. ALL BELONGINGS ACCOUNTED FOR. SAFETY MEASURES PLACED: BED LOW AND LOCKED, ALARM ON, SIDE RAILS UP X2, CALL LIGHT WITHIN REACH.
[2021-11-02] MEDS: HYDROCODONE/APAP 10/325MG TABLET PO PRN (21:53)
--- NOTE | 2021-11-02 22:00 | NUR ---
DOG TRAINER NOTES PT VERBALIZED THAT HER PMD ADVISED TO STOP TAKING [place] D/T POTASSIUM CONTENT. NOTED AND WILL RELAY TO AM SHIFT RN.
[2021-11-02] MEDS: CARVEDILOL 12.5 MG TABLET PO SCH (22:29)
[2021-11-02] MEDS: HEPARIN SODIUM, PORCINE 5000 UNITS/1 ML VIAL SQ SCH (22:29)
[2021-11-02] MEDS: CALCIUM ACETATE 667 MG CAP/TAB PO SCH (22:29)
[2021-11-02] MEDS: GABAPENTIN 100 MG CAPSULE PO SCH (22:29)
[2021-11-02] MEDS: DIAZEPAM 5 MG TABLET PO SCH (22:30)
[2021-11-02] MEDS: AMLODIPINE BESYLATE 5 MG TABLET PO SCH (22:30)
[2021-11-02] MEDS: ALBUTEROL FS 2.5 MG/3 ML VIAL.NEB NEB PRN (22:41)
[2021-11-02] MEDS: IPRATROPIUM NEB FS 0.5 MG/2.5 ML AMPUL.NEB NEB PRN (22:41)
[2021-11-03] VITALS: BP 101/49
--- NOTE | 2021-11-03 01:00 | NUR ---
RETAIL AGENT NOTES CALLED [facility] TO CONFIRM THAT PRAVASTATIN DOSE IS 40MG.
[2021-11-03] MEDS: ALBUTEROL FS 2.5 MG/3 ML VIAL.NEB NEB PRN (03:35)
[2021-11-03] MEDS: IPRATROPIUM NEB FS 0.5 MG/2.5 ML AMPUL.NEB NEB PRN (03:35)
[2021-11-03 04:32] VITALS: BP 101/55
--- NOTE | 2021-11-03 06:50 | NUR ---
TIRE TESTER CLOSING NOTES PT LYING IN BED SLEEPING INTERMITTENTLY, EASY TO AROUSE. A/O X4. HAS O2 AT 2 LPM VIA NASAL CANULA. NO C/O OR PAIN AT THIS TIME. SATURATING AT 96-99%. ON TELE MONITOR READING SINUS RHYTHM AT 84 BPM. HAS RIGHT FOREARM IV ACCESS #20G AND SALINE LOCKED. INTACT, PATENT AND FLUSHING. HAS LEFT UPPER ARM AV FISTULA, DRESSING C/D/I. ALL DUE MEDS GIVEN AND NEEDS ATTENDED. SAFETY MEASURES MAINTAINED: BED LOW AND LOCKED, ALARM ON, SIDE RAILS UP X2, CALL LIGHT WITHIN REACH. WILL ENDORSE TO AM SHIFT FOR ADDIS.
[2021-11-03 06:52] LABS: BASOPHILS % (AUTO) 0.2 % (0.0-2.0); EOSINOPHILS % (AUTO) 2.5 % (0.0-6.0); HEMATOCRIT 33 % (33-45); HEMOGLOBIN 8.9 g/dL (11.5-14.8); LYMPHOCYTES # (AUTO) 2.6 K/uL (0.8-4.8); LYMPHOCYTES % (AUTO) 58.2 % (20.0-44.0); MEAN CORPUSCULAR HGB CONC 27 g/dl (31.0-36.0); MEAN CORPUSCULAR VOLUME 70 fL (82-100); MONOCYTES # (AUTO) 0.2 K/uL (0.1-1.30); MONOCYTES % (AUTO) 5.2 % (2.0-12.0); NEUTROPHILS # (AUTO) 1.5 K/uL (1.8-8.9); NEUTROPHILS % (AUTO) 33.9 % (43.0-81.0); PLATELET COUNT (AUTO) 53 K/uL (150-450); WHITE BLOOD COUNT (AUTO) 4.5 K/uL (4.3-11.0)
[2021-11-03] MEDS: LEVOTHYROXINE SODIUM 25 MCG TABLET PO SCH (06:52)
[2021-11-03 07:17] LABS: CREATININE 7.1 mg/dL (0.6-1.3); MAGNESIUM 2.7 mg/dL (1.8-2.4)
--- NOTE | 2021-11-03 07:30 | NUR ---
RN OPENING NOTES RECEIVED PATIENT LYING IN BED SLEEPING. EASY TO AROUSE. A/O X4. ON O2 @2 LPM VIA N/C. NO C/O SOB OR PAIN AT THIS TIME. SPO2 AT 100%. ON TELE MONITOR READING SINUS RHYTHM, HR @63 BPM. NOTED WITH RIGHT FOREARM IV ACCESS #20G AND SALINE LOCKED. INTACT, PATENT AND FLUSHING WELL. ALSO NOTED WITH LEFT UPPER ARM AV FISTULA, DRESSING C/D/I. SAFETY MEASURES IN PLACE: BED IN LOWEST AND LOCKED POSITION, BED ALARM ON, SIDE RAILS UP X2, CALL LIGHT WITHIN REACH. WILL CONTINUE TO MONITOR PATIENT.
[2021-11-03 07:46] LABS: POTASSIUM 6.3 mmol/L (3.5-5.1)
[2021-11-03 08:00] VITALS: BP 117/62
[2021-11-03] MEDS: CHOLECALCIFEROL (VITAMIN D 3) 400 UNIT TABLET PO SCH (08:44)
[2021-11-03] MEDS: GABAPENTIN 100 MG CAPSULE PO SCH ×2 (08:44→17:08)
[2021-11-03] MEDS: CALCIUM ACETATE 667 MG CAP/TAB PO SCH ×3 (08:44→17:08)
[2021-11-03] MEDS: HYDROCODONE/APAP 10/325MG TABLET PO PRN ×2 (08:45→18:37)
[2021-11-03] MEDS: LOSARTAN POTASSIUM 25 MG TABLET PO SCH (08:48)
[2021-11-03] MEDS: AMLODIPINE BESYLATE 5 MG TABLET PO SCH ×2 (08:48→17:00)
[2021-11-03] MEDS: CARVEDILOL 12.5 MG TABLET PO SCH ×2 (08:48→17:00)
[2021-11-03] MEDS: HEPARIN SODIUM, PORCINE 5000 UNITS/1 ML VIAL SQ SCH (08:48)
--- NOTE | 2021-11-03 08:48 | NUR ---
RN NOTE HEPARIN HELD PER MD, PATIENT FOR THORACENTESIS THIS AM.
[2021-11-03 11:00] LABS: BAND % (MANUAL) 1 % (0.0-5.0); EOSINOPHILS % (MANUAL) 5 % (0-4); LYMPHOCYTES % (MANUAL) 32 % (16-48); MONOCYTES % (MANUAL) 6 % (0-11.0); NEUTROPHILS % (MANUAL) 56 (42-76)
--- NOTE | 2021-11-03 12:05 | NUR ---
RN NOTE S/P RIGHT THORACENTESIS BY DR. WANG. REMOVED 700 ML OF PLEURAL FLUID. PATIENT TOLERATED PROCEDURE WELL. STAT CHEST X-RAY ORDERED.
[2021-11-03 16:00] VITALS: BP 105/58
--- NOTE | 2021-11-03 19:00 | NUR ---
RN CLOSING NOTE PATIENT AWAKE, ALERT AND ORIENTED X4 IN BED. HAS O2 VIA NC AT 2LPM. NO SOB OR RESP. DISTRESS. SATURATING AT 96-99%. HAS ON TELE MONITOR READING SINUS RHYTHM, HR @63 BPM. NOTED WITH RIGHT FOREARM IV ACCESS 20G AND SALINE LOCKED. INTACT, PATENT AND FLUSHING WELL. ALSO NOTED WITH LEFT UPPER ARM AV FISTULA, DRESSING C/D/I. HAD THORACENTESIS THIS AM, 700ML REMOVED. CURRENTLY PATIENT HAS ONGOING HEMODIALYSIS. SAFETY MEASURES IN PLACE: BED IN LOWEST AND LOCKED POSITION, BED ALARM ON, SIDE RAILS UP X2, CALL LIGHT WITHIN REACH. NEEDS MET AT THIS TIME, WILL ENDORSE TO ONCOMING NURSE.
--- NOTE | 2021-11-03 19:45 | NUR ---
SUPERINTENDENT OVERHEAD DISTRIBUTION NOTES RECEIVED ON BED A/O X4,HEMODIALYSIS TREATMENT IN PROGRESS,HD NURSE AT BEDSIDE. A/O X4,VERBALLY RESPONSIVE.
[2021-11-03 20:00] VITALS: BP 112/56
--- NOTE | 2021-11-03 20:00 | NUR ---
IMPORT EXPORT MANAGER NOTES HD TREATMENT COMPLETED,TOLERATED 3 HOURS TAKEN OUT 1 LITER,BP 123/66,PULSE-71.
--- NOTE | 2021-11-03 20:00 | NUR ---
SENIOR PHP SOFTWARE DEVELOPER NOTES NOTED DRESSING INTACT AND DRY ON LEFT UPPER ARM FISTULA HD ACCESS.NO BLEEDING NOTED.WITH RFA SALINE LOCK FOR MEDS.WILL MONITOR FOR SOB.
[2021-11-03] MEDS: CARISOPRODOL 350 MG TABLET PO PRN ×2 (21:36→21:40)
--- NOTE | 2021-11-03 21:36 | NUR ---
OTC CLERK NOTES STILL IN COMPLAINTS OF MID LOWER BACK PAIN 7/10 ON PAIN SCALE,JUST MEDICATED WITH NORCO 10/325MG,1 TAB PO BY DAY NURSE,FIRST SHE WANTS SOMA BUT SHE CHANGED HER MIND TO TAKE IT BECAUSE SHE JUST HAD NORCO 10/325 @ 1835
[2021-11-03] MEDS: ATORVASTATIN 10 MG TABLET PO SCH (21:56)
[2021-11-03] MEDS: DIAZEPAM 5 MG TABLET PO SCH (21:56)
[2021-11-04] VITALS: BP 108/59
[2021-11-04] MEDS: CARISOPRODOL 350 MG TABLET PO PRN (02:21)
--- NOTE | 2021-11-04 02:21 | NUR ---
BUSINESS ANALYSIS SPECIALIST NOTES AWAKE THIS TIME,C/O GENERALIZED PAIN,MEDICATED WITH SOMA 350MG PO WITH FOOD THIS TIME PER PATIENT REQUEST
[2021-11-04 04:00] VITALS: BP 111/63
[2021-11-04] MEDS: LEVOTHYROXINE SODIUM 25 MCG TABLET PO SCH (06:28)
--- NOTE | 2021-11-04 07:00 | NUR ---
TECHNICIAN HELPER INSTRUMENT NOTES NO EPISODE OF SOB NOTED,FAIRLY RESTED,SLEEP WITH INTERVALS,CALL LIGHT IN REACH,NEEDS ATTENDED.
[2021-11-04 07:06] LABS: CALCIUM, SERUM 8.6 mg/dL (8.5-10.1); MAGNESIUM 2.3 mg/dL (1.8-2.4); PHOSPHORUS 4.9 mg/dL (2.5-4.9); POTASSIUM 4.1 mmol/L (3.5-5.1)
--- NOTE | 2021-11-04 07:15 | NUR ---
RN OPENING NOTE RECEIVED PT IN BED ASLEEP. NO SIGNS OF RESPIRATORY DISTRESS OR SOB NOTED. NON-LABORED BREATHING. TELE READING SR AT 72. LEFT UPPER ARM FISTULA. RESTING IN BED COMFORTABLY. SAFELY CHECKS IN PLACE: BED LOCKED, BED IN LOWEST POSITION, CALL LIGHT WITHIN REACH. WILL CONTINUE TO MONITOR.
[2021-11-04 08:00] VITALS: BP 106/57
[2021-11-04] MEDS: CALCIUM ACETATE 667 MG CAP/TAB PO SCH ×3 (08:00→17:20)
[2021-11-04] MEDS: LOSARTAN POTASSIUM 25 MG TABLET PO SCH (09:00)
[2021-11-04] MEDS: GABAPENTIN 100 MG CAPSULE PO SCH ×2 (09:00→17:20)
[2021-11-04] MEDS: AMLODIPINE BESYLATE 5 MG TABLET PO SCH ×2 (09:00→17:00)
[2021-11-04] MEDS: CHOLECALCIFEROL (VITAMIN D 3) 400 UNIT TABLET PO SCH (09:00)
[2021-11-04] MEDS: CARVEDILOL 12.5 MG TABLET PO SCH ×2 (09:00→17:00)
--- NOTE | 2021-11-04 09:23 | NUR ---
RN NOTE DIALYSIS IS WITH PT AT THIS TIME, WILL GIVE SCHEDULED MEDS ONCE FINISHED.
[2021-11-04] MEDS ORDERED: LIDOCAINE HCL/PF 1% 30 ML SDV IJ ONE (10:00)
[2021-11-04 11:24] LABS: BASOPHILS # (AUTO) 0.1 K/uL (0.0-0.2); BASOPHILS % (AUTO) 2.7 % (0.0-2.0); EOSINOPHILS % (AUTO) 6.8 % (0.0-6.0); HEMATOCRIT 30 % (33-45); HEMOGLOBIN 8.3 g/dL (11.5-14.8); LYMPHOCYTES # (AUTO) 0.6 K/uL (0.8-4.8); LYMPHOCYTES % (AUTO) 16.8 % (20.0-44.0); MEAN CORPUSCULAR HGB CONC 27 g/dl (31.0-36.0); MEAN CORPUSCULAR VOLUME 68 fL (82-100); MONOCYTES # (AUTO) 0.3 K/uL (0.1-1.30); NEUTROPHILS # (AUTO) 2.3 K/uL (1.8-8.9); NEUTROPHILS % (AUTO) 65.7 % (43.0-81.0); RED BLOOD CELL COUNT(AUTO) 4.45 MIL/uL (4.0-5.2); WHITE BLOOD COUNT (AUTO) 3.5 K/uL (4.3-11.0)
[2021-11-04 11:30] LABS: PLATELET COUNT (AUTO) 38 K/uL (150-450)
[2021-11-04 12:00] VITALS: BP 120/66
[2021-11-04] MEDS: HYDROCODONE/APAP 10/325MG TABLET PO PRN ×2 (13:29→21:16)
[2021-11-04 14:40] LABS: BAND % (MANUAL) 1 % (0.0-5.0); EOSINOPHILS % (MANUAL) 6 % (0-4); LYMPHOCYTES % (MANUAL) 19 % (16-48); MONOCYTES % (MANUAL) 6 % (0-11.0); NEUTROPHILS % (MANUAL) 68 (42-76)
[2021-11-04 16:00] VITALS: BP 113/59
--- NOTE | 2021-11-04 17:22 | NUR ---
RN NOTE PT SCHEDULED FOR CT OF CHEST TODAY, CALLED CT DEPARTMENT TWICE AND NEVER CAME DOWN. WILL ENDORSE TO BRICK PAVING CHECKER.
--- NOTE | 2021-11-04 18:59 | NUR ---
RN CLOSING NOTE PT IN BED RESTING COMFORTABLY. A/OX4. NO SIGNS OF RESPIRATORY DISTRESS OR SOB NOTED. ON NC 4L. TELE MONITOR READING SR 80. IV IN RFA 20G INTACT AND PATENT. ROSE FISTULA WITH DRESSING AFTER DIALYSIS TODAY, MAY BE REMOVED AT BED TIME. DIALYSIS 1.5L REMOVED. ALL NEEDS MET, ALL SCHEDULED MEDS GIVEN. SAFETY CHECKS IN PLACE: BED LOCKED, BED IN LOWEST POSITION, CALL LIGHT WITHIN REACH. WILL ENDORSE TO HUMAN RESOURCE INTERNSHIP FOR ADDIS
--- NOTE | 2021-11-04 19:45 | NUR ---
ASSOCIATE MUSIC PROFESSOR NOTES SR-76 ON TELE MONITOR.ON BED A/O X4,BREATHING NON LABORED,O2 IN USED ON AND OFF,O2 SAT 99%.SALINE LOCK RIGHT ARM INTACT AND PATENT,LEFT UPPER ARM FISTULA WITH GOOD BRUIT NOTED.C/O GENERALIZED PAIN,WILL MEDICATE.CALL LIGHT IN REACH,NEEDS ANTICIPATED.
[2021-11-04 20:00] VITALS: BP 140/71
--- NOTE | 2021-11-04 21:16 | NUR ---
TEENAGE BABYSITTER NOTES C/O GENERALIZED PAIN 8/10 ON PAIN SCALE.NORCO 10/325,1 TAB GIVEN ORDERED.
[2021-11-04] MEDS: DIAZEPAM 5 MG TABLET PO SCH (21:59)
[2021-11-04] MEDS: ATORVASTATIN 10 MG TABLET PO SCH (21:59)
[2021-11-05] VITALS: BP 135/64
[2021-11-05 04:00] VITALS: BP 130/68
[2021-11-05] MEDS: LEVOTHYROXINE SODIUM 25 MCG TABLET PO SCH (06:24)
[2021-11-05 06:45] LABS: CREATININE 3.9 mg/dL (0.6-1.3); MAGNESIUM 2.1 mg/dL (1.8-2.4); PHOSPHORUS 4.5 mg/dL (2.5-4.9); POTASSIUM 3.8 mmol/L (3.5-5.1)
--- NOTE | 2021-11-05 06:58 | NUR ---
SOLUTIONS SALES CONSULTANT NOTES BACK PAIN IMPROVED WITH NORCO,HAD BM LAST NIGHT,REQUESTING PROTONIX PO.FOR HD TODAY,IN NO ACUTE DISTRESS.ENDORSE TODAY NURSE FOR ADDIS.
[2021-11-05] MEDS ORDERED: PANTOPRAZOLE 40 MG TABLET.DR PO SCH (07:30)
[2021-11-05 07:37] LABS: HEMATOCRIT 31 % (33-45); HEMOGLOBIN 8.4 g/dL (11.5-14.8); MEAN CORPUSCULAR HGB CONC 28 g/dl (31.0-36.0); MEAN CORPUSCULAR VOLUME 68 fL (82-100); RED BLOOD CELL COUNT(AUTO) 4.51 MIL/uL (4.0-5.2); WHITE BLOOD COUNT (AUTO) 4.1 K/uL (4.3-11.0)
[2021-11-05] MEDS: CALCIUM ACETATE 667 MG CAP/TAB PO SCH ×3 (07:54→17:15)
--- NOTE | 2021-11-05 08:15 | NUR ---
RN OPENING NOTE PATIENT RECEIVED IN BED, AO X 4, ABLE TO RESPONDS ALL STIMULI. IN NO ACUTE DISTRESS NOTED. RESPIRATORY EVEN AND UNLABORED ON OXYGEN AT 2LS VIA NC. SKIN IS WARM TO TOUCH, KEEP CLEAN/DRY. KEPT ELEVATED HOB FOR ENSURE AIRWAY AND ASPIRATION PRECAUTION, ALSO LOWEST POSITION OF THE BED, S/R UP X 2, BED ALARM IS ON AT ALL THE TIMES. ALL SAFETY PRECAUTION APPLIED. CALL LIGHT WITHIN REACH, WILL CONTINUE TO MONITOR.
[2021-11-05 08:22] LABS: PLATELET COUNT (AUTO) 43 K/uL (150-450)
[2021-11-05] MEDS: CHOLECALCIFEROL (VITAMIN D 3) 400 UNIT TABLET PO SCH (08:25)
[2021-11-05] MEDS: PANTOPRAZOLE 40 MG TABLET.DR PO SCH (08:25)
[2021-11-05] MEDS: GABAPENTIN 100 MG CAPSULE PO SCH ×2 (08:25→17:15)
[2021-11-05] MEDS: AMLODIPINE BESYLATE 5 MG TABLET PO SCH ×2 (08:28→17:16)
[2021-11-05] MEDS: LOSARTAN POTASSIUM 25 MG TABLET PO SCH (08:28)
[2021-11-05] MEDS: CARVEDILOL 12.5 MG TABLET PO SCH ×2 (08:28→17:16)
--- NOTE | 2021-11-05 08:28 | NUR ---
PATIENT SCHEDULED FOR HD TODAY, AND WILL HOLD BP MEDS.
[2021-11-05 11:08] LABS: EOSINOPHILS % (MANUAL) 8 % (0-4); LYMPHOCYTES % (MANUAL) 34 % (16-48); MONOCYTES % (MANUAL) 6 % (0-11.0); NEUTROPHILS % (MANUAL) 52 (42-76)
[2021-11-05] MEDS: HYDROCODONE/APAP 10/325MG TABLET PO PRN (12:01)
--- NOTE | 2021-11-05 18:00 | NUR ---
RN CLOSING NOTE PATIENT IN BED RESTING. IN NO ACUTE DISTRESS NOTED. RESPIRATORY EVEN AND UNLABORED ON OXYGEN AT 2Ls. SKIN IS WARM TO TOUCH, KEEP CLEAN/DRY, INTACT IV LINE. PATIENT HAD HD AND 1,500 ML OUTPUT. KEPT ELEVATED HOB FOR ENSURE AIRWAY AND ASPIRATION PRECAUTION. BED IN LOWEST POSITION AND LOCKED. BED ALARM IS ON AT ALL THE TIMES. ALL SAFETY MEASURED IN PLACED. CALL LIGHT WITHIN REACH, WILL ENDORSED TO NEXT SHIFT.
--- NOTE | 2021-11-05 19:50 | NUR ---
TUBER HELPER OPENING NOTES PATIENT RECEIVED RESTING IN BED COMFORTABLY; A/OX4, PATIENT ABLE TO MAKE NEEDS KNOWN; SLIGHT SOB NOTED, PATIENT WAS OFF OXYGEN; PER AM SHIFT, PATIENT ABLE TO AMBULATE WITH ASSISTIVE DEVICE; TELE MONITOR READS SINUS RHYTHM 78BPM; RFA #20G, ROSE FISTULA NOTED; SAFETY PRECAUTIONS IMPLEMENTED; BED LOCKED IN LOW POSITION; SIDE RAILX2, CALL LIGHT WITHIN EASY REACH; BED ALARM ON; WILL CONT PLAN OF CARE
[2021-11-05 20:00] VITALS: BP 127/74
[2021-11-05 20:37] VITALS: BP 99/50
[2021-11-05] MEDS: POLYETHYLENE GLYCOL 3350 17 GM POWD.PACK PO PRN (21:09)
[2021-11-05] MEDS: ATORVASTATIN 10 MG TABLET PO SCH (21:09)
[2021-11-05] MEDS: DIAZEPAM 5 MG TABLET PO SCH (21:09)
[2021-11-05] MEDS: CARISOPRODOL 350 MG TABLET PO PRN (23:59)
[2021-11-06] VITALS (8 sets, daily range): BP systolic 111–126; BP diastolic 65–80
--- NOTE | 2021-11-06 06:33 | NUR ---
RUBBER CHEMIST CLOSING NOTES PATIENT RESTING IN BED COMFORTABLY; A/OX4, PATIENT ABLE TO MAKE NEEDS KNOWN; PATIENT TOLERATING 2LPM VIA NC, BREATHING EVEN AND UNLABORED; NO SOB NOTED; TELE MONITOR READS SINUS RHYTHM 65BPM; RFA #20G, ROSE FISTULA NOTED; SAFETY PRECAUTIONS IMPLEMENTED; BED LOCKED IN LOW POSITION; SIDE RAILX2, CALL LIGHT WITHIN EASY REACH; BED ALARM ON; WILL ENDORSE ADDIS TO ONCOMING SHIFT
[2021-11-06] MEDS: PANTOPRAZOLE 40 MG TABLET.DR PO SCH (07:25)
[2021-11-06] MEDS: LEVOTHYROXINE SODIUM 25 MCG TABLET PO SCH (07:25)
--- NOTE | 2021-11-06 07:25 | NUR ---
TURN DOWN ATTENDANT OPENING NOTES RECEIVED PATIENT AWAKE IN BED IN NO ACUTE SIGNS OF DISTRESS. A/OX4, ABLE TO MAKE NEEDS KNOWN, DENIES PAIN OR ANY DISCOMFORTS AT THIS TIME. ON 2 VIA N/C AT 4LPM AT THIS TIME, TOLERATING WELL WITH NO SOB NOTED. TELE MONITOR READS NSR WITH HR OF 80 BPM, NO C/O CARDIAC DISTRESS VOICED AT THIS TIME. IV ACCESS ON RFA #20G INTACT AND PATENT. PT WITH ROSE FISTULA WITH + BRUIT/SHRILL PRESENT. SAFETY PRECAUTIONS MAINTAINED: BED LOCKED IN LOW POSITION, SIDE RAILX2, CALL LIGHT WITHIN EASY REACH, BED ALARM ON. WILL CONTINUE TO MONITOR PT.
[2021-11-06 08:09] LABS: CALCIUM, SERUM 9.1 mg/dL (8.5-10.1); CREATININE 3.4 mg/dL (0.6-1.3); MAGNESIUM 2.1 mg/dL (1.8-2.4); PHOSPHORUS 4.2 mg/dL (2.5-4.9); POTASSIUM 4.3 mmol/L (3.5-5.1)
[2021-11-06 08:31] LABS: BASOPHILS # (AUTO) 0.1 K/uL (0.0-0.2); BASOPHILS % (AUTO) 1.6 % (0.0-2.0); EOSINOPHILS % (AUTO) 7.6 % (0.0-6.0); HEMATOCRIT 28 % (33-45); HEMOGLOBIN 7.7 g/dL (11.5-14.8); LYMPHOCYTES # (AUTO) 1.3 K/uL (0.8-4.8); LYMPHOCYTES % (AUTO) 40.1 % (20.0-44.0); MEAN CORPUSCULAR HGB CONC 27 g/dl (31.0-36.0); MEAN CORPUSCULAR VOLUME 68 fL (82-100); MONOCYTES # (AUTO) 0.2 K/uL (0.1-1.30); MONOCYTES % (AUTO) 7.4 % (2.0-12.0); NEUTROPHILS # (AUTO) 1.4 K/uL (1.8-8.9); NEUTROPHILS % (AUTO) 43.3 % (43.0-81.0); RED BLOOD CELL COUNT(AUTO) 4.17 MIL/uL (4.0-5.2); WHITE BLOOD COUNT (AUTO) 3.3 K/uL (4.3-11.0)
[2021-11-06 08:34] LABS: PLATELET COUNT (AUTO) 34 K/uL (150-450)
[2021-11-06] MEDS: GABAPENTIN 100 MG CAPSULE PO SCH ×2 (08:40→16:21)
[2021-11-06] MEDS: CHOLECALCIFEROL (VITAMIN D 3) 400 UNIT TABLET PO SCH (08:40)
[2021-11-06] MEDS: CARVEDILOL 12.5 MG TABLET PO SCH ×2 (08:41→16:22)
[2021-11-06] MEDS: CALCIUM ACETATE 667 MG CAP/TAB PO SCH ×3 (08:42→17:18)
[2021-11-06] MEDS: AMLODIPINE BESYLATE 5 MG TABLET PO SCH ×2 (08:42→16:22)
[2021-11-06] MEDS: LOSARTAN POTASSIUM 25 MG TABLET PO SCH (08:42)
--- NOTE | 2021-11-06 09:00 | NUR ---
RN NOTES RECEIVED CALL FROM [employer] [facility] GARCIA THAT PT HAS CRITICAL LOW PLATELETS 34, DR COLEMAN MADE AWARE AND ACKNOWLEDGED. NO NEW ORDER MADE AT THIS TIME.
[2021-11-06 10:40] LABS: BAND % (MANUAL) 2 % (0.0-5.0); EOSINOPHILS % (MANUAL) 4 % (0-4); LYMPHOCYTES % (MANUAL) 40 % (16-48); MONOCYTES % (MANUAL) 7 % (0-11.0); NEUTROPHILS % (MANUAL) 47 (42-76)
[2021-11-06] MEDS: HYDROCODONE/APAP 10/325MG TABLET PO PRN (11:48)
--- NOTE | 2021-11-06 11:50 | NUR ---
RN NOTES PT C/O CHRONIC ACHING MID LOWER BACK PAIN, 10/10 SCALE. PRN NORCO 10/325 MG PO GIVEN AT 1148. WILL CONTINUE TO MONITOR AND REASSESS PT.
--- NOTE | 2021-11-06 12:10 | NUR ---
RN NOTES PT P/U VIA WHEELCHAIR FOR CT OF CHEST W/O CONTRAST.
[2021-11-06] MEDS ORDERED: DIPHENHYDRAMINE HCL 12.5 MG/5 ML UDC PO PRN (14:00)
--- NOTE | 2021-11-06 14:18 | NUR ---
RN NOTES PT C/O OF ITCHING WHILE ON HD, VERBALIZED THAT SHE USUALLY TAKE BENADRYL 12.[address] COLEMAN MADE AWARE WITH ORDER TO GIVE BENADRYL 12.5MG/5ML PO AND WAS GIVEN.
[2021-11-06] MEDS ORDERED: NEPRO VAN 237 ML CAN PO PRN (14:30)
--- NOTE | 2021-11-06 14:50 | NUR ---
RN NOTES PT JUST COMPLETED HEMODIALYSIS VIA ROSE AV SHUNT WITH "0" OUT. S/P V/S: BP 100/57, P 73, R 18, T 97.9F AND SP02 99% ON 02 VIA N/C @3LPM.
--- NOTE | 2021-11-06 18:50 | NUR ---
CUTTER WET MACHINE OPENING NOTES PATIENT IN BED AWAKE AND RESTING AT MODERATE HIGH BACKREST POSITION. A/OX4, ABLE TO MAKE NEEDS KNOWN. ON 02 VIA N/C AT 3LPM AT THIS TIME, TOLERATING WELL WITH NO SOB NOTED. ON TELE-MONITOR SHOWS CURRENT READING OF NSR WITH HR ON 80'S, NO C/O CARDIAC DISTRESS VOICED DURING SHIFT. IV ACCESS ON RFA #20G INTACT, PATENT AND FLUSHES WELL. PT WITH ROSE FISTULA WITH + BRUIT/SHRILL PRESENT. ALL NEEDS AND CARE ATTENDED WELL. SAFETY PRECAUTIONS MAINTAINED: BED LOCKED IN LOW POSITION, SIDE-RAIL UP X2, CALL LIGHT WITHIN EASY REACH, BED ALARM ON. WILL ENDORSE ADDIS TO BOOKMAKER'S CLERK NURSE.
--- NOTE | 2021-11-06 19:30 | NUR ---
DAY TRADER OPENING NOTES PATIENT RECEIVED RESTING IN BED COMFORTABLY; A/OX4, PATIENT ABLE TO MAKE NEEDS KNOWN; PATIENT ABLE TO AMBULATE WITH ASSISTIVE DEVICE; TELE MONITOR READS SINUS RHYTHM 83BPM; RFA #20G, ROSE FISTULA NOTED; SAFETY PRECAUTIONS IMPLEMENTED; BED LOCKED IN LOW POSITION; SIDE RAILX2, CALL LIGHT WITHIN EASY REACH; BED ALARM ON; WILL CONT PLAN OF CARE
[2021-11-06] MEDS: DIAZEPAM 5 MG TABLET PO SCH (21:40)
[2021-11-06] MEDS: ATORVASTATIN 10 MG TABLET PO SCH (21:40)
[2021-11-06] MEDS: POLYETHYLENE GLYCOL 3350 17 GM POWD.PACK PO PRN (21:41)
[2021-11-07] VITALS: BP 124/68
[2021-11-07] MEDS ORDERED: TEMAZEPAM 15 MG CAPSULE PO ONE
[2021-11-07 04:00] VITALS: BP 140/56
--- NOTE | 2021-11-07 06:57 | NUR ---
CAN LINE OPERATOR CLOSING NOTES PATIENT RESTING IN BED COMFORTABLY; A/OX4, PATIENT ABLE TO MAKE NEEDS KNOWN; PATIENT ABLE TO AMBULATE WITH ASSISTIVE DEVICE; TELE MONITOR READS SINUS RHYTHM 77BPM; RFA #20G, ROSE FISTULA NOTED; SAFETY PRECAUTIONS IMPLEMENTED; BED LOCKED IN LOW POSITION; SIDE RAILX2, CALL LIGHT WITHIN EASY REACH; BED ALARM ON; WILL ENDORSE TO DAY SHIFT FOR ADDIS.
[2021-11-07 07:26] LABS: CALCIUM, SERUM 9.2 mg/dL (8.5-10.1); CREATININE 3.5 mg/dL (0.6-1.3); MAGNESIUM 2.1 mg/dL (1.8-2.4); PHOSPHORUS 4.6 mg/dL (2.5-4.9); POTASSIUM 4.8 mmol/L (3.5-5.1)
--- NOTE | 2021-11-07 07:30 | NUR ---
CENTRIFUGAL SUPERVISOR NOTES PT IN BED, ASLEEP, EASY TO AROUSE, NO SIGN OF PAIN OR ANY DISCOMFORT, BREATHING PATTERN NORMAL, CALL LIGHT WITHIN EASY REACH, KEPT WARM AND COMFORTABLE IN BED.
[2021-11-07 08:00] VITALS: BP 113/60
[2021-11-07] MEDS: LEVOTHYROXINE SODIUM 25 MCG TABLET PO SCH (08:28)
[2021-11-07] MEDS: CHOLECALCIFEROL (VITAMIN D 3) 400 UNIT TABLET PO SCH (08:29)
[2021-11-07] MEDS: PANTOPRAZOLE 40 MG TABLET.DR PO SCH (08:29)
[2021-11-07] MEDS: CALCIUM ACETATE 667 MG CAP/TAB PO SCH ×4 (08:29→17:48)
[2021-11-07] MEDS: HYDROCODONE/APAP 10/325MG TABLET PO PRN (08:29)
[2021-11-07] MEDS: GABAPENTIN 100 MG CAPSULE PO SCH ×2 (08:29→17:43)
[2021-11-07 08:47] LABS: BASOPHILS % (AUTO) 1.3 % (0.0-2.0); EOSINOPHILS % (AUTO) 8.6 % (0.0-6.0); HEMATOCRIT 29 % (33-45); HEMOGLOBIN 8.1 g/dL (11.5-14.8); LYMPHOCYTES # (AUTO) 1.2 K/uL (0.8-4.8); MEAN CORPUSCULAR HGB CONC 28 g/dl (31.0-36.0); MEAN CORPUSCULAR VOLUME 69 fL (82-100); MONOCYTES # (AUTO) 0.3 K/uL (0.1-1.30); MONOCYTES % (AUTO) 9.3 % (2.0-12.0); NEUTROPHILS # (AUTO) 1.8 K/uL (1.8-8.9); NEUTROPHILS % (AUTO) 48.8 % (43.0-81.0); RED BLOOD CELL COUNT(AUTO) 4.23 MIL/uL (4.0-5.2); WHITE BLOOD COUNT (AUTO) 3.7 K/uL (4.3-11.0)
[2021-11-07 08:56] LABS: PLATELET COUNT (AUTO) 33 K/uL (150-450)
[2021-11-07] MEDS: CARVEDILOL 12.5 MG TABLET PO SCH ×2 (09:00→17:43)
[2021-11-07] MEDS: LOSARTAN POTASSIUM 25 MG TABLET PO SCH (09:00)
[2021-11-07] MEDS: AMLODIPINE BESYLATE 5 MG TABLET PO SCH (09:00)
[2021-11-07] MEDS ORDERED: ALBUMIN 25% 12.5 GM/50 ML BOTTLE IV PRN (10:00)
[2021-11-07] MEDS: MIDODRINE HCL (5MG) 5 MG TABLET PO SCH ×3 (10:00→17:00)
[2021-11-07] MEDS ORDERED: ALBUMIN 25% 25 GM in PREMIX 1 EA IV PRN (10:00)
--- NOTE | 2021-11-07 10:13 | NUR ---
DIGITAL COMMUNICATIONS MANAGER NOTES PT IN BED, AWAKE, ALERT AND ORIENTED, NO COMPLAINT AT THIS TIME, CURRENTLY UNDERGOING HEMODIALYSIS, BP WENT DOWN TO 84/54 WITH HR OF 76, DR. MCCURDY INFORMED, ORDERED ALBUMIN IV PRN EVERY HD AND MIDODRINE ROUTINE, PT SEEN BY DR. COOK, PLAN OF CARE DISCUSSED WITH PT, VERBALIZED UNDERSTANDING, NEEDS ATTENDED.
[2021-11-07] MEDS ORDERED: DILT-32 PO (11:46)
[2021-11-07] MEDS ORDERED: SILD20TA PO (11:46)
--- NOTE | 2021-11-07 11:51 | NUR ---
ONCOLOGY RADIATION PHYSICIAN NOTES PT COMPLETED HEMODIALYSIS, TOLERATED WELL, VS STABLE.
[2021-11-07 12:00] VITALS: BP 119/66
[2021-11-07] MEDS: DILTIAZEM HCL 30 MG TABLET PO SCH ×2 (12:00→17:43)
[2021-11-07] MEDS: SILDENAFIL CITRATE 20 MG TABLET PO SCH ×2 (13:14→17:43)
[2021-11-07 14:58] LABS: BAND % (MANUAL) 3 % (0.0-5.0); BASOPHILS % (MANUAL) 0 % (0.0-2.0); EOSINOPHILS % (MANUAL) 4 % (0-4); LYMPHOCYTES % (MANUAL) 39 % (16-48); MONOCYTES % (MANUAL) 8 % (0-11.0); NEUTROPHILS % (MANUAL) 46 (42-76)
[2021-11-07 16:00] VITALS: BP 130/67
[2021-11-07 17:43] VITALS: BP 130/67
--- NOTE | 2021-11-07 18:36 | NUR ---
PEDIATRIC IMMUNOLOGIST NOTES PT IN BED, AWAKE, ALERT AND ORIENTED, DENIES PAIN, NOT IN DISTRESS, CALL LIGHT WITHIN REACH, PM MEDS GIVEN ORDERED, COMPLETED HEMODIALYSIS, TOLERATED WELL, PM MEDS GIVEN, SEEN BY DR. COOK TODAY, DISCHARGE ORDER GIVEN BY MD, DISCHARGE AND MEDICATION INSTRUCTIONS PROVIDED TO PT, VERBALIZED UNDERSTANDING, BELONGINGS ACCOUNTED FOR, TELE MONITOR BOX RETURNED TO ABORIGINAL CEREMONIAL CELEBRANT, NEW PRESCRIPTION GIVEN TO PT, AWAITING PT BIO MEDICAL TECHNICIAN BY HER FRIEND.
--- NOTE | 2021-11-07 19:19 | NUR ---
DIGITAL LIBRARIAN NOTES ASSISTED PT TO WHEELCHAIR TO THE HOSPITAL LOBBY, PICKED UP BY HER FRIEND, LEFT VIA PRIVATE CAR IN STABLE CONDITION.
== END 2021-11-07 19:00 | disposition home or self-care (01) | DRG 291 ==
LOC: ER 14:29 → TELE 20:36
PROVIDERS: ADMIT Nurse Practitioner Acute Care
PROC: 0W993ZZ Drainage of Right Pleural Cavity, Percutaneous Approach (ICD-10-PCS; principal; 2021-11-03)
PROC: 5A1D70Z Performance of Urinary Filtration, Intermittent, Less than 6 Hours Per Day (ICD-10-PCS; 2021-11-03)
DX: I13.2 Hypertensive heart and chronic kidney disease with heart failure and with stage 5 chronic kidney disease, or end stage renal disease (principal); I50.33 Acute on chronic diastolic (congestive) heart failure; J96.01 Acute respiratory failure with hypoxia; N18.6 End stage renal disease; T86.12 Kidney transplant failure; E87.1 Hypo-osmolality and hyponatremia; J90 Pleural effusion, not elsewhere classified; J98.11 Atelectasis; I42.9 Cardiomyopathy, unspecified; K21.9 Gastro-esophageal reflux disease without esophagitis; D50.9 Iron deficiency anemia, unspecified; D56.9 Thalassemia, unspecified; D63.8 Anemia in other chronic diseases classified elsewhere; E03.9 Hypothyroidism, unspecified; E87.5 Hyperkalemia; E78.5 Hyperlipidemia, unspecified; I07.1 Rheumatic tricuspid insufficiency; Z99.2 Dependence on renal dialysis; G89.4 Chronic pain syndrome; D69.6 Thrombocytopenia, unspecified; I27.29 Other secondary pulmonary hypertension; J44.9 Chronic obstructive pulmonary disease, unspecified; Z79.890 Hormone replacement therapy; M89.9 Disorder of bone, unspecified; D63.1 Anemia in chronic kidney disease; Y83.8 Other surgical procedures as the cause of abnormal reaction of the patient, or of later complication, without mention of misadventure at the time of the procedure; Y92.009 Unspecified place in unspecified non-institutional (private) residence as the place of occurrence of the external cause; M89.8X9 Other specified disorders of bone, unspecified site
CPT/HCPCS: 36415; 71045-TC; 71250-TC; 80048-TC; 80061-TC; 80076-TC; 83735-TC; 83880; 84100-TC; 84484-TC; 85025-TC; 85610-TC; 85730-TC; 86706; 87070-TC; 87075-TC; 87081-TC; 87102-TC; 87340; 89051-TC; 90935-TC; 93307-TC; 93970-TC; 94799-TC; A4216; A6403; C9803; G0378; J1644; J3490; J7030; P9047; Q0163